=== PATIENT | female | born 1985 | race Caucasian/White ===

== ENCOUNTER → 2018-07-14 13:51 | Outpatient (CLI) | payer SELFPAY ==
[2018-07-14 16:25] LABS: Urine N gonorrhoeae NOT DETECTED
[2018-07-14 16:29] LABS: Urine Chlamydia NOT DETECTED
== END ==
PROVIDERS: Visit Provider Obstetrics & Gynecology
DX: Z34.82 Encounter for supervision of other normal pregnancy, second trimester (principal)
CPT/HCPCS: 87491; 87591

== ENCOUNTER → 2018-11-10 10:42 | Outpatient (CLI) | payer SELFPAY ==
[2018-11-11 08:23] LABS: Strep Grp B PCR NEG for Grp B Strep
== END ==
PROVIDERS: Visit Provider Obstetrics & Gynecology
DX: Z34.83 Encounter for supervision of other normal pregnancy, third trimester (principal); Z3A.36 36 weeks gestation of pregnancy
CPT/HCPCS: 87653

== ENCOUNTER 2018-12-04 21:18 | Outpatient (CLI) | payer SELFPAY | END 2018-12-04 23:00 | disposition home or self-care (01) | LOC: OB 12-07 16:36 | PROVIDERS: Visit Provider Obstetrics & Gynecology | DX: Z34.83 Encounter for supervision of other normal pregnancy, third trimester (principal); Z3A.39 39 weeks gestation of pregnancy | CPT/HCPCS: 59025; 59050; G0378; G0379 ==

== ENCOUNTER 2018-12-08 08:52 | Observation (INO) | payer SELFPAY ==
--- NOTE | 2018-12-08 13:03 | PM.OBTRLD ---
Visit Information Visit Information Date of evaluation: 12/08/18 Primary OB Provider: Rashida Zavala On-call OB Provider: Elizabeth Correa Comments/Additional reasons for admission: Patient was going to be admitted for a AROM induction however the unit was too busy to keep her so she was discharged to hopefully be seen tomorrow Vital Signs Vital Signs: Blood pressure 109/69, pulse of 83, temperature 36.0? PFSH Social History Smoking Status: Former smoker Social History Smoking Status: Former smoker Evaluation Evaluation Baseline heart rate: 125 Variability: Moderate (11-25) monitor accelerations: Present monitor decelerations: Absent Contraction Frequency (minutes): 0 Diagnosis, Plan/Disposition Final Diagnosis (1) 40 weeks gestation of : Current Visit: No Status: Acute Plan/Disposition Plan: Patient will return if she goes into spontaneous labor otherwise hopefully be called in for induction tomorrow OB Disposition: home
== END 2018-12-08 11:03 | disposition home or self-care (01) ==
PROVIDERS: Admitting Provider Obstetrics & Gynecology; Visit Provider Obstetrics & Gynecology
DX: Z34.83 Encounter for supervision of other normal pregnancy, third trimester (principal); Z3A.40 40 weeks gestation of pregnancy
CPT/HCPCS: 59025; G0378; G0379

== ENCOUNTER 2018-12-09 07:01 | Inpatient (IN) | payer SELFPAY ==
[2018-12-09 08:49] LABS: Add Manual Diff / Slide Review NO; Basophils Absolute Auto 100 /uL (0-100); Basophils Percent Auto 0.7 % (0-2); Eosinophils Absolute Auto 100 /uL (0-450); Eosinophils Percent Auto 1.1 % (2-4); Hematocrit 38.7 % (36-46); Hemoglobin 13.4 g/dL (12.0-16.0); Lymphocytes Absolute Auto 1700 /uL (1100-4500); Lymphocytes Percent Auto 16.7 % (25-40); Mean Corpuscular HGB Conc 34.5 % (30-36); Mean Corpuscular Hemoglobin 32.2 PG (26-34); Mean Corpuscular Volume 93.2 fL (80-100); Monocytes Absolute Auto 600 /uL (0-900); Monocytes Percent Auto 6.1 % (3-14); Neutrophils Absolute Auto 7600 /uL (1500-7000); Neutrophils Percent Auto 75.4 % (50-75); Platelet Count 187 X10^3/uL (150-400); Red Blood Cell Count 4.15 X10^6/uL (4.0-5.2); Red Cell Distribution Width 14.5 % (11.6-14.8); White Blood Cell Count 10.1 X10^3/uL (4.5-11.0)
[2018-12-09 09:31] VITALS: BP 117/63
[2018-12-09] MEDS: LACTATED RINGERS 1,000 ML 100 ML IV (10:37)
[2018-12-09] MEDS: OXYTOCIN PREMIX 30 UNIT/500 ML PLAST..BAG IV (10:38)
--- NOTE | 2018-12-09 15:38 | P.HPOB_ITS ---
OB HPI Date/Time Date of admission: 12/09/18 Date Patient Seen: 12/09/18 Time Patient Seen: 07:45 History of Present Condition Chief complaint: OBS : 3 Para: 2 Estimated Date of Delivery: 12/05/18 Estimated Gestational Age (weeks): 40+4 Narrative: Gisela Landaverde is a 33 year old female 3 para 2 who presents for augmentation of labor Comments: Patient has a history of precipitous labors She also has a history of a retained placenta and hemorrhage Indications Indication for induction OB: post dates and other (history of precipitous labors, h/o pph with retained placenta) History of Present care: good care, initiated at week # (9, transferred here at 19 weeks) and number of visits (10) Dating criteria: LMP confirmed by 2nd trimester US Ultrasounds: normal mid trimester US Obstetrical complications: none Medical complications: none Preadmission Labs Blood type: O (+) positive -: Antibody screen: negative, GBS status: negative, HBsAG: negative, HIV: negative and RPR/VDLR: negative -: Chlamydia screen: not detected and Gonorrhea screen: not detected -: Rubella: immune and Varicella: not immune HCT: 35 HCAB: negative Urine: Negative 1 hr GTT: 112 Prior (ies) History: 2013 with Yamilet Clarke at , 6#6oz 2017 with Haylie Modi at [facility], precipitous, retained placenta, OR/ICU required Evaluation Evaluation Baseline heart rate: 135 Variability: Moderate (11-25) monitor accelerations: Present monitor decelerations: Absent Contraction Frequency (minutes): 0 Category of Tracing: I Cervical dilation (cm): 4 Cervical effacement (%): 80 station: -1 Laboratory results: Laboratory Tests 12/09/18 12/09/18 08:00 08:00 WBC 10.1 RBC 4.15 Hgb 13.4 Hct 38.7 MCV 93.2 MCH 32.2 MCHC 34.5 RDW 14.5 Plt Count 187 Neut % (Auto) 75.4 H Lymph % (Auto) 16.7 L [place] % (Auto) 6.1 Eos % (Auto) 1.1 L Baso % (Auto) 0.7 Neut # (Auto) 7600 H Lymph # (Auto) 1700 [place] # (Auto) 600 Eos # (Auto) 100 Baso # (Auto) 100 Blood Type O Positive Antibody Screen Negative PFSH Social History Smoking Status: Smoker, status unknown Social History Smoking Status: Smoker, status unknown Meds Home Medications Medication Instructions Recorded Confirmed Type ascorbate calcium 814 mg/gram oral mg PO gram 07/14/18 07/14/18 History powder cholecalciferol (vitamin D3) 400 400 unit PO DAILY 07/14/18 07/14/18 History unit/drop oral drops 1 tab PO DAILY 07/14/18 07/14/18 History vitamin,calcium,trptmxii-iwbt-nsuit acid tablet Allergies Allergy/AdvReac Type Severity Reaction Status Date / Time No Known Drug Allergies Allergy Unverified 07/14/18 13:53 Exam Vital Signs (past 8 hours): - 12/09/18 09:31 Blood Pressure 117/63 Narrative Exam Narrative: Generally: Patient walking around in room, no acute distress Lungs: Clear to auscultation bilaterally Cardiovascular: Regular rate and rhythm Fundal height: 40 cm Estimated weight:7 1/2 lb Extremities: Negative Homans, no edema Objective Labs Result Diagrams: 12/09/18 08:00 Labs: Laboratory Results - last 24 hr 12/09/18 12/09/18 08:00 08:00 WBC 10.1 RBC 4.15 Hgb 13.4 Hct 38.7 MCV 93.2 MCH 32.2 MCHC 34.5 RDW 14.5 Plt Count 187 Neut % (Auto) 75.4 H Lymph % (Auto) 16.7 L [place] % (Auto) 6.1 Eos % (Auto) 1.1 L Baso % (Auto) 0.7 Neut # (Auto) 7600 H Lymph # (Auto) 1700 [place] # (Auto) 600 Eos # (Auto) 100 Baso # (Auto) 100 Blood Type O Positive Antibody Screen Negative Assessment and Plan Assessment and Plan Assessment and Plan narrative: Assessment: 33-year-old 3 para 2 at 40 and 4 7th weeks gestation with advanced cervical dilation who lives in [place] and history of precipitous deliveries History of retained placenta with hemorrhage requiring operating room an ICU Plan: Artificial rupture of membranes performed with clear amniotic fluid Pitocin augmentation as needed Expected management to spontaneous vaginal delivery Time Spent with Patient Total time spent with greater than 50% in coordination of care (as documented) at patient's floor/unit and/or counseling patient:: 15-24 minutes
--- NOTE | 2018-12-09 20:54 | PM.OBPRVD ---
Events: Labor Augmentation and Meconium Stained Fluid (moderate) Delivery date: 12/09/18 Intrapartal events: Abnormal Presentation (occiput transverse ) Cervical ripening method: none Induction method: AROM Delivery augmentation: pitocin Delivery monitor: external FHT and external uterine Route of delivery: Episiotomy description: None L&D Laceration Description: None Estimated blood loss (mL): 250 Anesthesia type: None Complications: None Narrative: Patient complete and pushed with 2 contractions. While on hands and knees, the vertex delivered in the right occiput anterior presentation over an intact perineum at 8:25 p.m.. No nuchal cord. The remainder of the body delivered without difficulty and was handed up to mom. Mom was flipped onto her back. Once the cord stopped pulsing, the cord was double clamped and cut. Cord bloods were obtained. The placenta delivered intact with a 3 vessel cord at 8:42 p.m.. Fundus was massaged to firm. Pitocin was given in the IV fluids. Estimated blood loss 250 cc. No lacerations. Apgars 8 at 1 minute and 9 at 5 minutes. There was moderate meconium-stained amniotic fluid after delivery of the head. . No analgesia. Mom and infant stable to recovery. Plan for aftercare: To routine care
[2018-12-09 23:34] VITALS: BP 126/65; PULSE 84; RESP 16; TEMP 36.9
== END 2018-12-10 00:48 | disposition home or self-care (01) | DRG 807 ==
PROVIDERS: Admitting Provider Obstetrics & Gynecology; Visit Provider Obstetrics & Gynecology
DX: O48.0 Post-term pregnancy (principal); Z37.0 Single live birth; Z3A.40 40 weeks gestation of pregnancy; O32.2XX0 Maternal care for transverse and oblique lie, not applicable or unspecified; O77.0 Labor and delivery complicated by meconium in amniotic fluid
CPT/HCPCS: 59050; 59400; 76815; 85025; 86850; 86900; 86901; G0378; G0379; J2590